=== PATIENT | female | born 1960 | race Native Hawaiian/Other Pacific Islander ===

== ENCOUNTER 2021-05-06 19:23 | Emergency (ER) | payer BC ==
[~2021-05-06] VITALS: Ht 167.6 cm; Wt 88.5 kg
[2021-05-06 21:00] VITALS: BP 131/72; TEMP 98.3
== END 2021-05-06 21:00 | disposition home or self-care (01) ==
LOC: ED 19:23
PROC: 0HQFXZZ Repair Right Hand Skin, External Approach (ICD-10-PCS; principal; 2021-05-06)
DX: S61.411A Laceration without foreign body of right hand, initial encounter (principal); W45.8XXA Other foreign body or object entering through skin, initial encounter; Y92.89 Other specified places as the place of occurrence of the external cause
CPT/HCPCS: 90471; 90715; 99283